=== PATIENT | male | born 1945 | race Caucasian/White ===

== ENCOUNTER → 2016-12-17 | Outpatient (CLI) | payer MEDICARE ==
[~2016-12-17] MED LIST: FURO40TA PO; LISI-515 PO; NOVONP2 SQ; NOVORP2 SQ; RANI150T PO; VITA1000 PO
[2016-12-17 13:32] LABS: AUTOMATED NEUTROPHIL # 7.3 TH/MM3 (1.8-7.7); BASOPHIL # 0.1 TH/MM3 (0-0.2); BASOPHIL % 0.8 % (0.0-2.0); EOSINOPHIL # 0.3 TH/MM3 (0-0.4); EOSINOPHIL % 2.8 % (0.0-4.0); HEMATOCRIT 39.1 % (39.0-51.0); HEMO FLAGS DIFF FINAL; LYMPHOCYTE # 2.2 TH/MM3 (1.0-4.8); MONO % 5.4 % (0.0-8.0); PLATELET COUNT 159 TH/MM3 (150-450); RED CELL DISTRIBUTION WIDTH 12.7 % (11.6-17.2); WHITE BLOOD COUNT 10.5 TH/MM3 (4.0-11.0)
[2016-12-17 13:54] LABS: BICARBONATE 27.3 MEQ/L (21.0-32.0); POTASSIUM 4.5 MEQ/L (3.5-5.1)
--- NOTE | 2016-12-18 21:50 | EKG ---
Date Performed: 12/17/2016 Time Performed: 13:22:26 PTAGE: 71 years EKG: Sinus rhythm WITH OCCASIONAL VENTRICULAR PREMATURE COMPLEXES LOW QRS VOLTAGE IN PRECORDIAL LEADS NONSPECIFIC T-WA VE ABNORMALITY BORDERLINE ECG NO PREVIOUS TRACING DOCTOR: Medhat Ricks Interpretating Date/Time 12/18/2016 21:50:03
== END ==
LOC: CPRE 13:01
PROVIDERS: ATTEND Orthopaedic Surgery Orthopaedic Surgery of the Spine
DX: Z01.810 Encounter for preprocedural cardiovascular examination (principal); Z01.812 Encounter for preprocedural laboratory examination; M51.36 Other intervertebral disc degeneration, lumbar region; M96.1 Postlaminectomy syndrome, not elsewhere classified; G89.4 Chronic pain syndrome; R94.31 Abnormal electrocardiogram [ECG] [EKG]
CPT/HCPCS: 36415; 80048; 85025; 93005

== ENCOUNTER → 2016-12-24 | Day surgery (SDC) | payer MEDICARE ==
[~2016-12-24] VITALS: Ht 172.7 cm; Wt 121.0 kg
[~2016-12-24] MED LIST changes: +ACETAMINOPHEN/HYDROcodone 325 MG/7.5 MG TAB PO PRN; +BUPIVACAINE/EPINEPHRINE 0.25% 50 ML VIAL INFIL ONE; +CHLORHEXIDINE GLUCONATE 2 % 1 PACK (2 CLOTHS) TOPICAL PRN; +CHLORHEXIDINE GLUCONATE 4% SOLN 120 ML BTL TOPICAL SCH; +DO NOT ADM ANY ANTICOAGULANT DRUGS PRN; +FAMOTIDINE 20 MG/2 ML VIAL ONE; +INSULIN HUMAN REGULAR 1,000 UNITS/10 ML VIAL SQ PRN; +LACTATED RINGER'S 1000 ML INJ 1,000 ML IV ONE; +LACTATED RINGER'S 1000 ML IV PRN; +LIDOCAINE HCL 1% 50 ML VIAL ONE; +METOPROLOL TARTRATE 25 MG TAB PO PRN; +MIDAZOLAM HCL 2 MG/2 ML VIAL ONE; +ONDANSETRON HCL 4 MG/2 ML VIAL IV PUSH ONE; +PHENYLEPH/NS 1000 MCG/10 ML SYR IV ONE; +POVIDONE IODINE 5% (ANTISEPSIS KIT) 4 APPLICATIONS EACH NARE PRN; +PROPOFOL 200 MG/20 ML AMP IV ONE; +SODIUM CHLORID 0.9% 500 ML IV PRN; +SUGAMMADEX SODIUM 200 MG/2 ML VIAL IV PUSH ONE; +VANCOMYCIN 1000 MG/NS 250 ML (for <70 kg) IV SCH; +ceFAZolin 2 GM PREMIX 50 ML IV SCH; +ePHEDrine/NS 25 MG/5 ML SYR IV ONE; +fentaNYL CITRATE 250 MCG/5 ML AMP ONE
[2016-12-24 10:15] VITALS: BP 148/69; PULSE 65; RESP 18; TEMP 98; O2SAT 97
[2016-12-24 14:40] VITALS: BP 150/74; PULSE 70; RESP 18; TEMP 97.9; O2SAT 96
--- NOTE | 2016-12-24 23:13 | MP ---
cc: ROSIBEL FALCON [facility], [facility] DATE OF SURGERY 12/24/16 PREOPERATIVE DIAGNOSIS 1. 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 2. Chronic pain syndrome. 3. Status post lumbar laminectomy syndrome. 4. Lumbar spine degenerative disc disease 5. Morbid obesity. POSTOPERATIVE DIAGNOSIS 1. 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 2. Chronic pain syndrome. 3. Status post lumbar laminectomy syndrome. 4. Lumbar spine degenerative disc disease 5. Morbid obesity. PROCEDURE Revision spinal cord stimulator, neuro pulse generator. SURGEON Dorothea Falcon MD ASSESSMENT Anette Rivers PA-C SPECIMENS None. ESTIMATED BLOOD LOSS Minimal. COMPLICATIONS None. ANESTHESIA General. DRAINS None. CONDITION Stable. PLAN OF ACTIVITY As per orders. PROCEDURE My back office medical assistant Anette Rivers PA-C, was present for the entire surgical case. She is medically necessary for the entire case because of the complexity of the case and to facilitate the performance of the procedure. The [employer] ENGINEER at the back table not a skilled set for this case to manipulate the instruments e.g. multiple different soft tissue retractors, removal of the failed spinal cord stimulator and insertion of the new neuro pulse generator. The patient was brought to the operating room and had satisfactory general endotracheal anesthesia by the department of anesthesia. The patient was carefully transferred on a [facility] spinal frame. Because of the patient's severe morbid obesity great care was made to protect all pressure points. Lumbosacral spine, the posterior pelvis was all prepped and draped in the usual sterile manner. 20 cc of 0.25% Marcaine with epinephrine was used to infiltrate the operative site. Elliptical incision was made to excise the scar tissue. Very careful surgical dissection was made over the pulse generator. Dissection continued through tissue. Identification of each of the leads and wires were made. Great care to protect these. Capsule was longitudinally incised and the pulse generator was removed. Screws were then loosened and then the wires were then removed from this pulse generator. A new [employer] neuro pulse generator was inserted. The type of battery inserted was decided with the patient and the rep from [employer]. These wires themselves were then reconnected to the new neuro pulse generator. Intraoperative impedances showed appropriate numbers. The pocket itself was then sutured together so that there would be no abnormal motion. This was using 0 Vicryl suture. Subcutaneous tissue layers with 0 Vicryl and 2-0 Vicryl. Skin was approximated with running subcuticular 3-0 nylon. Dermabond placed over incisions. Sterile dressing applied. The patient tolerated the procedure well. Arrived to recovery in stable and satisfactory condition. MD ERI Bowman/RILEY /1:49 PM /10:41 PM MTDCristela
== END | disposition home or self-care (01) ==
LOC: HSDC 09:27
PROVIDERS: ATTEND Orthopaedic Surgery Orthopaedic Surgery of the Spine
DX: T85.890A Other specified complication of nervous system prosthetic devices, implants and grafts, initial encounter (principal); G89.4 Chronic pain syndrome; E66.01 Morbid (severe) obesity due to excess calories; I10 Essential (primary) hypertension; G62.9 Polyneuropathy, unspecified; K21.9 Gastro-esophageal reflux disease without esophagitis; E11.9 Type 2 diabetes mellitus without complications; Y83.1 Surgical operation with implant of artificial internal device as the cause of abnormal reaction of the patient, or of later complication, without mention of misadventure at the time of the procedure; Z68.41 Body mass index [BMI] 40.0-44.9, adult
CPT/HCPCS: 63685; 82948; J0690; J2250; J3010; J3370; J7050; J7120; C1820; J2370; J2405